=== PATIENT | female | born 1970 | race Caucasian/White ===

== ENCOUNTER 2017-07-27 00:37 | Emergency (ER) | payer OTHER ==
[2017-07-27 00:44] VITALS: TEMP 98.1
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
[2017-07-27] MEDS ORDERED: cloNIDine HCL 0.2 MG TAB PO STA (01:03)
[2017-07-27 01:16] LABS: Basophils # (A) 0.1 k/uL (0-0.2); Basophils % (A) 1 %; CH 30.9; CHCM 33.3; Eosinophils # (A) 0.2 k/uL (0-0.7); Eosinophils % (A) 4 %; HCT 35.9 % (34.0-46.0); HDW 2.48; HGB 12.2 gm/dL (11.4-16.0); Luc # (Auto) 0.17; Luc % (Auto) 3; Lymphocytes # (A) 1.3 k/uL (1.0-4.8); Lymphocytes % (A) 19 %; MCH 31.6 pg (25.0-35.0); MCV 93.1 fL (80.0-100.0); Mean Platelet Volume 7.3; Monocytes # (A) 0.4 k/uL (0-1.0); Monocytes % (A) 6 %; Neutrophils # (A) 4.5 k/uL (1.3-7.7); Neutrophils % (A) 68 %; RBC 3.85 m/uL (3.80-5.40); WBC 6.7 k/uL (3.8-10.6); WBC (Perox) 7.12
[2017-07-27 01:25] LABS: ALT 23 U/L (9-52); AST 18 U/L (14-36); Alkaline Phosphatase 83 U/L (38-126); Anion Gap 8 mmol/L; Blood Urea Nitrogen 18 mg/dL (7-17); Calcium 8.7 mg/dL (8.4-10.2); Carbon Dioxide 27 mmol/L (22-30); Chloride 105 mmol/L (98-107); Glucose 92 mg/dL (74-99); Magnesium 1.7 mg/dL (1.6-2.3); Non-African American GFR(MDRD) 59 (>60 ml/min/1.73 sqM); Potassium 3.6 mmol/L (3.5-5.1); Sodium 140 mmol/L (137-145); Total Bilirubin <0.1 mg/dL (0.2-1.3); Total Protein 6.5 g/dL (6.3-8.2)
[2017-07-27 01:35] LABS: Creatine Kinase 60 U/L (30-135)
[2017-07-27 01:40] LABS: INR 1.1 (<1.2); Partial Thromboplastin Time 25.6 sec (22.0-30.0)
[2017-07-27 01:48] LABS: Creatine Kinase MB 1.3 ng/mL (0.0-2.4); Troponin I <0.012 ng/mL (0.000-0.034)
--- NOTE | 2017-07-27 02:02 | XR ---
EXAM: XR Chest, 2 Views CLINICAL HISTORY: Chest pain TECHNIQUE: Frontal and lateral views of the chest. COMPARISON: Chest x-ray dated 07/29/2016 FINDINGS: Lungs: Unremarkable. No consolidation. Pleural space: Unremarkable. No pneumothorax. Heart: Unremarkable. No cardiomegaly. Mediastinum: Unremarkable. Bones/joints: Unremarkable. IMPRESSION: Normal chest x-rays.
[2017-07-27] MEDS ORDERED: FAMOTIDINE 20 MG/2 ML VIAL IV STA (02:09)
[2017-07-27] MEDS ORDERED: methylPREDNISolone SOD SUCCI 125 MG/2 ML VIAL IV STA (02:09)
[2017-07-27] MEDS ORDERED: diphenhydrAMINE 50 MG/ML 1 ML VIAL IVP STA (02:09)
[2017-07-27] MEDS ORDERED: RX INFO: IV CONTRAST WAS GIVEN 1 EACH MISC MISCELLANE PRN (02:11)
--- NOTE | 2017-07-27 03:28 | CT ---
EXAM: CT Angiography Chest With Intravenous Contrast CLINICAL HISTORY: Low pulmonary embolus TECHNIQUE: Axial computed tomographic angiography images of the chest with intravenous contrast using pulmonary embolism protocol. CTDI is 3.0, 22. 78, 3.1 mGy and DLP is 127.90 mGy-cm. This CT exam was performed using one or more of the following dose reduction techniques: automated exposure control, adjustment of the mA and/or kV according to patient size, and/or use of iterative reconstruction technique. MIP reconstructed images were created and reviewed. COMPARISON: No relevant prior studies available. FINDINGS: Pulmonary arteries: No evidence of pulmonary embolus. Aorta: No acute findings. No thoracic aortic aneurysm. Lungs: Subtle patchy ground glass opacities with mild bronchial wall thickening seen to both lungs which may result in nonspecific inflammatory or infectious process. Pleural space: Unremarkable. No significant effusion. No pneumothorax. Heart: Unremarkable. No cardiomegaly. No significant pericardial effusion. Bones/joints: No acute fracture. No dislocation. Soft tissues: Unremarkable. Lymph nodes: Unremarkable. No enlarged lymph nodes. Gallbladder and bile ducts: Gallbladder is surgically absent. IMPRESSION: 1. No evidence of pulmonary embolus. 2. Subtle patchy ground glass opacities with mild bronchial wall thickening seen in both lungs which may represent a nonspecific inflammatory or infectious process.
[2017-07-27 04:37] VITALS: PULSE 65; RESP 18
[2017-07-27 05:35] VITALS: BP 167/95
== END 2017-07-27 05:34 | disposition home or self-care (01) ==
LOC: EC 00:37
DX: R07.89 Other chest pain (principal); J45.909 Unspecified asthma, uncomplicated; J44.9 Chronic obstructive pulmonary disease, unspecified; I10 Essential (primary) hypertension; F17.200 Nicotine dependence, unspecified, uncomplicated; Z86.73 Personal history of transient ischemic attack (TIA), and cerebral infarction without residual deficits; Z86.14 Personal history of Methicillin resistant Staphylococcus aureus infection; Z85.41 Personal history of malignant neoplasm of cervix uteri; Z85.43 Personal history of malignant neoplasm of ovary; Z90.721 Acquired absence of ovaries, unilateral; Z79.51 Long term (current) use of inhaled steroids; Z79.899 Other long term (current) drug therapy; Z91.041 Radiographic dye allergy status
CPT/HCPCS: 36415; 93005; 85379; 80053; 82550; 82553; 83735; 84484; 85025; 85610; 85730; 71020; 71275; 99285; 96374; 96375 ×2; J1200; J2930; Q9967

== ENCOUNTER 2019-06-24 17:54 | Emergency (ER) | payer OTHER ==
[2019-06-24] MEDS ORDERED: LIDOCAINE 5% PATCH TOPICAL STA (18:38)
[2019-06-24] MEDS ORDERED: ACETAMINOPHEN TAB 325 MG TAB PO STA (18:38)
[2019-06-24] MEDS ORDERED: ATENOLOL 50 MG TAB PO STA (18:42)
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
--- NOTE | 2019-06-24 19:24 | XR ---
EXAMINATION TYPE: XR humerus RT DATE OF EXAM: 06/24/2019 COMPARISON: NONE HISTORY: Pain TECHNIQUE: 2 views FINDINGS: Shoulder joint and elbow joint appear intact. I see no fracture nor dislocation. IMPRESSION: Negative right humerus exam.
--- NOTE | 2019-06-24 19:24 | XR ---
EXAMINATION TYPE: XR clavicle RT DATE OF EXAM: 06/24/2019 COMPARISON: NONE HISTORY: Pain TECHNIQUE: 2 views FINDINGS: I see no fracture nor dislocation. AC joint is intact. IMPRESSION: Negative right clavicle exam.
--- NOTE | 2019-06-24 19:38 | XR ---
EXAMINATION TYPE: XR shoulder complete RT DATE OF EXAM: 06/24/2019 COMPARISON: NONE HISTORY: Shoulder pain TECHNIQUE: 3 views FINDINGS: There is no sign of fracture nor dislocation. Joint spaces are normal. There are no patholo gic calcifications. IMPRESSION: Negative right shoulder exam.
[2019-06-24 20:05] VITALS: BP 188/113; PULSE 71; RESP 18; TEMP 97.9
== END 2019-06-24 20:11 | disposition home or self-care (01) ==
LOC: EC 17:54
DX: S40.011A Contusion of right shoulder, initial encounter (principal); F17.200 Nicotine dependence, unspecified, uncomplicated; Z91.041 Radiographic dye allergy status; Z86.14 Personal history of Methicillin resistant Staphylococcus aureus infection; Z86.73 Personal history of transient ischemic attack (TIA), and cerebral infarction without residual deficits; Z98.890 Other specified postprocedural states; Y09 Assault by unspecified means
CPT/HCPCS: 99283

== ENCOUNTER 2019-09-12 18:30 | Emergency (ER) | payer OTHER ==
[2019-09-12 18:56] VITALS: RESP 18
[2019-09-12] MEDS ORDERED: ATENOLOL 50 MG TAB PO STA (19:10)
[2019-09-12 19:24] LABS: Basophils # (A) 0.2 k/uL (0-0.2); Basophils % (A) 1 %; Eosinophils # (A) 0.1 k/uL (0-0.7); Eosinophils % (A) 1 %; HCT 43.7 % (34.0-46.0); HGB 14.8 gm/dL (11.4-16.0); Lymphocytes # (A) 1.3 k/uL (1.0-4.8); Lymphocytes % (A) 11 %; MCH 31.9 pg (25.0-35.0); MCHC 33.9 g/dL (31.0-37.0); MCV 94.1 fL (80.0-100.0); Mean Platelet Volume 6.2; Monocytes # (A) 0.7 k/uL (0-1.0); Monocytes % (A) 6 %; Neutrophils # (A) 9.9 k/uL (1.3-7.7); Neutrophils % (A) 79 %; Platelet Count 283 k/uL (150-450); RBC 4.64 m/uL (3.80-5.40); RDW 12.9 % (11.5-15.5); WBC 12.5 k/uL (3.8-10.6)
[2019-09-12 19:33] LABS: Albumin 4.7 g/dL (3.5-5.0); Calcium 9.8 mg/dL (8.4-10.2); Potassium 4.3 mmol/L (3.5-5.1); Total Bilirubin 0.4 mg/dL (0.2-1.3); Total Protein 8.7 g/dL (6.3-8.2)
--- NOTE | 2019-09-12 19:40 | XR ---
EXAMINATION TYPE: XR chest 2V DATE OF EXAM: 09/12/2019 COMPARISON: 07/27/2017 HISTORY: High blood pressure TECHNIQUE: Frontal and lateral views of the chest are obtained. FINDINGS: Heart and mediastinum are normal. Lungs are clear. Costophrenic angles are clear. Bony tho rax is intact. IMPRESSION: Normal chest. No change.
[2019-09-12 20:02] LABS: Amorphous Sediment,Urine Rare /hpf; Appearance,Urine Clear (Clear); Bacteria,Urine Rare /hpf; Bilirubin,Urine Negative (Negative); Blood,Urine Negative (Negative); Color,Urine Yellow; Glucose,Urine (UA) Negative (Negative); Ketones,Urine Negative (Negative); Leukocyte Esterase,Urine Moderate (Negative); Mucus,Urine Occasional /hpf; Nitrite,Urine Negative (Negative); PH, Urine 5.5 (5.0-8.0); Protein,Urine Negative (Negative); RBC,Urine 1 /hpf (0-5); Squamous Epithelial Cell,Urine 16 /hpf (0-4); Urobilinogen,Urine <2.0 mg/dL (<2.0)
--- NOTE | 2019-09-12 20:47 | ED ---
General Adult HPI - General Chief complaint: Recheck/Abnormal Lab/Rx Stated complaint: out of blood pressure meds Time Seen by Provider: 09/12/19 18:57 Source: patient, RN notes reviewed, old records reviewed Mode of arrival: ambulatory Limitations: no limitations - History of Present Illness Initial comments: 48-year-old female patient comes to ED for chief complaint of hypertension. Patient reports that she checked her blood pressure at [facility] and it was elevated. Patient reports that she has been out of her blood pressure medication for the last 2 weeks. Patient states that she's had a waxing and waning headache last 2 days. Patient force it is very much improved now. Patient was sent for similar to her migraine headaches in the past. Patient also reports that she has had a waking approximately 30 pounds in the last few months. States that she has redness of her right breast yesterday which she wants to be evaluated. Denies Any chest pain or shortness of breath. Denies any other complaints at this time. Systemic: Pt denies fatigue, fever/chills, rash. Pt denies weakness, night sweats, weight loss. Neuro: Pt denies headache, visual disturbances, syncope or pre-syncope. HEENT: Pt denies ocular discharge or irritation, otalgia, rhinorrhea, pharyngitis or notable lymphadenopathy. Cardiopulmonary: Pt denies chest pain, SOB, heart palpitations, dyspnea on exertion. Abdominal/GI: Pt denies abdominal pain, n/v/d. : Pt denies dysuria, burning w/ urination, frequency/urgency. Denies new onset urinary or bowel incontinence. MSK: Pt denies myalgia, loss of strength or function in extremities. Neuro: Pt denies new onset weakness, paresthesias. - Related Data Previous Rx's Medication Instructions Recorded Acetaminophen [Acetaminophen ER] 650 mg PO Q8HR PRN #30 tablet.er 06/24/19 Atenolol [Tenormin] 50 mg PO BID #60 tab 06/24/19 Atenolol [Tenormin] 50 mg PO Q12HR 30 Days #60 tab 09/12/19 Allergies Allergy/AdvReac Type Severity Reaction Status Date / Time Iodinated Contrast Media Allergy Dyspnea/PASSED Verified 09/12/19 19:28 [Iodinated Contrast Media - OUT/NAUSEA IV Dye] Review of Systems ROS Statement: Those systems with pertinent positive or pertinent negative responses have been documented in the HPI. ROS Other: All systems not noted in ROS Statement are negative. Past Medical History Past Medical History: Asthma, Cancer, COPD, CVA/TIA, Hypertension, Pneumonia Additional Past Medical History / Comment(s): CERVICAL AND OVARIAN CA, TIA,"PT STATED A DR TOLD HER SHE IN EARLY STAGES OF MS AND IS SCHEDULED FOR A SPINAL TAP IN SEP 2016"," DISC PROBLEN IN NECK" History of Any Multi-Drug Resistant Organisms: MRSA Date of last positivie culture/infection: 2009 MDRO Source:: FACE Past Surgical History: Orthopedic Surgery, Tonsillectomy, Uterine Ablation Additional Past Surgical History / Comment(s): d&c, oophorectomy, right shoulder surgery Past Anesthesia/Blood Transfusion Reactions: No Reported Reaction Additional Past Anesthesia/Blood Transfusion Reaction / Comment(s): clausterphob ia Past Psychological History: Anxiety, Bipolar, Depression Smoking Status: Current every day smoker Past Alcohol Use History: None Reported Past Drug Use History: None Reported - Past Family History Father Family Medical History: Congestive Heart Failure (CHF), Deep Vein Thrombosis (DVT) Mother Family Medical History: Congestive Heart Failure (CHF) General Exam - General Exam Comments Initial Comments: Constitutional: NAD, AOX3, Pt has pleasant affect. HEENT: NC/AT, trachea midline, neck supple, no lymphadenopathy. Posterior p harynx non erythematous, without exudates. External ears appear normal, without discharge. Mucous membranes moist. Eyes PERRLA, EOM intact. There is no scleral icterus. No pallor noted. Cardiopulmonary: RRR, no murmurs, rubs or gallops, no JVD noted. Lungs CTAB in anterior and posterior landry. No peripheral edema. Abdominal exam: Abdomen soft and non-distended. Abdomen non-tender to palpation in all 4 quadrants. Bowel sounds active in LLQ. No hepatosplenomegaly. No ecchymosis Neuro: CN II-XII intact. No nuchal rigidity. No raccon eyes, no abrams sign, no hemotympanum. No cervical spinal tenderness. MSK: No posterior calf tenderness bilaterally, homans sign negative bilaterally. Posterior tibialis and radial pulse +2 bilaterally. Sensation intact in upper and lower extremities. Full active ROM in upper and lower extremities, 5/5 stregnth. Breast: External breast exam did not display any skin changes, chaperogned by JENNIFFER Jose. Limitations: no limitations Course Vital Signs 09/12/19 09/12/19 09/12/19 18:52 20:15 21:14 Temperature 97.8 F 98 F Pulse Rate 120 H 70 74 Respiratory 18 18 18 Rate Blood Pressure 165/117 160/107 166/105 O2 Sat by Pulse 98 97 96 Oximetry Medical Decision Making - Medical Decision Making 48-year-old female patient comes to ED for chief complaint of hypertension. Patient reports that she checked her blood pressure at [facility] and it was elevated. Patient reports that she has been out of her blood pressure medication for the last 2 weeks. Patient states that she's had a waxing and waning headache last 2 days. Patient force it is very much improved now. Patient was sent for similar to her migraine headaches in the past. Patient also reports that she has had a waking approximately 30 pounds in the last few months. States that she has redness of her right breast yesterday which she wants to be evaluated. Denies Any chest pain or shortness of breath. Denies any other complaints at this time. Patient vital signs displayed hypertension, second set of vital signs are stable. Physical exam did not display acute pathology. Laboratory investigations revealed mild leukocytosis of 12.5. CMP overall noncompressive. Kidney function only decreased from 2 years ago. Troponin negative. BNP negative. UA contaminated, be cultured. EKG nonischemic. Chest x-ray negati ve. Patient will pressure medications refilled. Will discharge with close outpatient follow-up. Case discussed with Dr. Viveros. - Lab Data Result diagrams: 09/12/19 19:15 09/12/19 19:15 Lab Results 09/12/19 09/12/19 09/12/19 Range/Units 19:15 19:15 19:15 WBC 12.5 H (3.8-10.6) k/uL RBC 4.64 (3.80-5.40) m/uL Hgb 14.8 (11.4-16.0) gm/dL Hct 43.7 (34.0-46.0) % MCV 94.1 (80.0-100.0) fL MCH 31.9 (25.0-35.0) pg MCHC 33.9 (31.0-37.0) g/dL RDW 12.9 (11.5-15.5) % Plt Count 283 (150-450) k/uL Neutrophils % 79 % Lymphocytes % 11 % Monocytes % 6 % Eosinophils % 1 % Basophils % 1 % Neutrophils # 9.9 H (1.3-7.7) k/uL Lymphocytes # 1.3 (1.0-4.8) k/uL Monocytes # 0.7 (0-1.0) k/uL Eosinophils # 0.1 (0-0.7) k/uL Basophils # 0.2 (0-0.2) k/uL Sodium 141 (137-145) mmol/L Potassium 4.3 (3.5-5.1) mmol/L Chloride 108 H (98-107) mmol/L Carbon Dioxide 22 (22-30) mmol/L Anion Gap 11 mmol/L BUN 17 (7-17) mg/dL Creatinine 1.11 H (0.52-1.04) mg/dL Est GFR (CKD-EPI)AfAm 67 (>60 ml/min/1.73 sqM) Est GFR (CKD-EPI)NonAf 58 (>60 ml/min/1.73 sqM) Glucose 108 H (74-99) mg/dL Calcium 9.8 (8.4-10.2) mg/dL Total Bilirubin 0.4 (0.2-1.3) mg/dL AST 37 H (14-36) U/L ALT 35 (9-52) U/L Alkaline Phosphatase 92 (38-126) U/L Troponin I (0.000-0.034) ng/mL NT-Pro-B Natriuret Pep 100 pg/mL Total Protein 8.7 H (6.3-8.2) g/dL Albumin 4.7 (3.5-5.0) g/dL Urine Color Urine Appearance (Clear) Urine pH (5.0-8.0) Ur Specific Meade (1.001-1.035) Urine Protein (Negative) Urine Glucose (UA) (Negative) Urine Ketones (Negative) Urine Blood (Negative) Urine Nitrite (Negative) Urine Bilirubin (Negative) Urine Urobilinogen (<2.0) mg/dL Ur Leukocyte Esterase (Negative) Urine RBC (0-5) /hpf Urine WBC (0-5) /hpf Ur Squamous Epith Cells (0-4) /hpf Amorphous Sediment (None) /hpf Urine Bacteria (None) /hpf Urine Mucus (None) /hpf 09/12/19 09/12/19 Range/Units 19:15 19:35 WBC (3.8-10.6) k/uL RBC (3.80-5.40) m/uL Hgb (11.4-16.0) gm/dL Hct (34.0-46.0) % MCV (80.0-100.0) fL MCH (25.0-35.0) pg MCHC (31.0-37.0) g/dL RDW (11.5-15.5) % Plt Count (150-450) k/uL Neutrophils % % Lymphocytes % % Monocytes % % Eosinophils % % Basophils % % Neutrophils # (1.3-7.7) k/uL Lymphocytes # (1.0-4.8) k/uL Monocytes # (0-1.0) k/uL Eosinophils # (0-0.7) k/uL Basophils # (0-0.2) k/uL Sodium (137-145) mmol/L Potassium (3.5-5.1) mmol/L Chloride (98-107) mmol/L Carbon Dioxide (22-30) mmol/L Anion Gap mmol/L BUN (7-17) mg/dL Creatinine (0.52-1.04) mg/dL Est GFR (CKD-EPI)AfAm (>60 ml/min/1.73 sqM) Est GFR (CKD-EPI)NonAf (>60 ml/min/1.73 sqM) Glucose (74-99) mg/dL Calcium (8.4-10.2) mg/dL Total Bilirubin (0.2-1.3) mg/dL AST (14-36) U/L ALT (9-52) U/L Alkaline Phosphatase (38-126) U/L Troponin I <0.012 (0.000-0.034) ng/mL NT-Pro-B Natriuret Pep pg/mL Total Protein (6.3-8.2) g/dL Albumin (3.5-5.0) g/dL Urine Color Yellow Urine Appearance Clear (Clear) Urine pH 5.5 (5.0-8.0) Ur Specific Meade 1.010 (1.001-1.035) Urine Protein Negative (Negative) Urine Glucose (UA) Negative (Negative) Urine Ketones Negative (Negative) Urine Blood Negative (Negative) Urine Nitrite Negative (Negative) Urine Bilirubin Negative (Negative) Urine Urobilinogen <2.0 (<2.0) mg/dL Ur Leukocyte Esterase Moderate H (Negative) Urine RBC 1 (0-5) /hpf Urine WBC 6 H (0-5) /hpf Ur Squamous Epith Cells 16 H (0-4) /hpf Amorphous Sediment Rare H (None) /hpf Urine Bacteria Rare H (None) /hpf Urine Mucus Occasional H (None) /hpf - EKG Data -: EKG Interpreted by Me (and Dr. Viveros) EKG Comments: 3081, P and 4022, QRS 90, QT/QTC 392/455. Sinus Rhythm with first-degree AV block. No concern for acute ischemia. Disposition Clinical Impression: Hypertension Disposition: HOME SELF-CARE Condition: Stable Instructions (If sedation given, give patient instructions): Hypertension (ED) Additional Instructions: Patient to adhere to previously discussed treatment plan and will take medication(s) as directed. Patient to follow up with PCP in 1-2 days. Patient to return to ED if symptoms do not improve. Take Medication as directed. Follow up with primary care provider tomorrow. Return to ED if condition worsens. Prescriptions: Atenolol [Tenormin] 50 mg PO Q12HR 30 Days #60 tab Is patient prescribed a controlled substance at d/c from ED?: No Referrals: None,Stated [Primary Care Provider] - 1-2 days
[2019-09-12 21:16] VITALS: BP 166/105; PULSE 74; TEMP 98
== END 2019-09-12 21:14 | disposition home or self-care (01) ==
LOC: EC 18:30
DX: I10 Essential (primary) hypertension (principal); D72.829 Elevated white blood cell count, unspecified; F17.200 Nicotine dependence, unspecified, uncomplicated; Z91.041 Radiographic dye allergy status; Z86.73 Personal history of transient ischemic attack (TIA), and cerebral infarction without residual deficits; Z85.43 Personal history of malignant neoplasm of ovary; Z85.41 Personal history of malignant neoplasm of cervix uteri
CPT/HCPCS: 36415; 71046; 80053; 81001; 83880; 84484; 85025; 93005; 99284

== ENCOUNTER 2019-12-21 21:23 | Emergency (ER) | payer OTHER ==
[2019-12-21] MEDS ORDERED: IPRATROPIUM-ALBUTEROL 3 ML NEB INHALATION STA (22:27)
[2019-12-21] MEDS ORDERED: ATENOLOL 50 MG TAB PO STA (22:27)
[2019-12-21 23:14] LABS: Basophils # (A) 0.2 k/uL (0-0.2); Basophils % (A) 2 %; Eosinophils # (A) 0.2 k/uL (0-0.7); Eosinophils % (A) 2 %; HCT 45.6 % (34.0-46.0); Lymphocytes # (A) 1.8 k/uL (1.0-4.8); Lymphocytes % (A) 16 %; MCH 31.1 pg (25.0-35.0); MCHC 32.9 g/dL (31.0-37.0); MCV 94.6 fL (80.0-100.0); Mean Platelet Volume 7.6; Monocytes # (A) 0.5 k/uL (0-1.0); Monocytes % (A) 5 %; Neutrophils % (A) 74 %; Platelet Count 294 k/uL (150-450); RBC 4.82 m/uL (3.80-5.40); WBC 10.8 k/uL (3.8-10.6)
[2019-12-21 23:26] LABS: Albumin 4.3 g/dL (3.5-5.0); Calcium 9.4 mg/dL (8.4-10.2); Magnesium 2.1 mg/dL (1.6-2.3); Potassium 3.6 mmol/L (3.5-5.1); Total Bilirubin 0.4 mg/dL (0.2-1.3); Total Protein 8.1 g/dL (6.3-8.2)
--- NOTE | 2019-12-21 23:34 | XR ---
EXAMINATION TYPE: XR chest 2V DATE OF EXAM: 12/21/2019 COMPARISON: 09/12/2019 HISTORY: Pneumonia TECHNIQUE: 2 views FINDINGS: Heart and mediastinum are normal. Lungs are clear. Diaphragm is normal. Bony thorax is inta ct. IMPRESSION: Normal chest. No change.
[2019-12-21 23:42] LABS: Partial Thromboplastin Time 25.7 sec (22.0-30.0); Prothrombin Time 10.5 sec (9.0-12.0)
--- NOTE | 2019-12-22 00:04 | ED ---
SOB HPI - General Chief Complaint: Shortness of Breath Stated Complaint: pnuemonia Time Seen by Provider: 12/21/19 21:55 Source: patient Mode of arrival: ambulatory - History of Present Illness Initial Comments: Cathi is a 49-year-old female with a history of COPD, hypertension who presents the ER today for evaluation of shortness of breath. Patient reports that she does not have a primary care physician and has not been able to follow-up due to previous insurance issues. Patient states that she is currently out of her inhalers and her antihypertensives. Patient reports that she's had a nonproductive cough and wheezing her over a week she states that every morning she wakes up she has coughing which causes left-sided chest pain that resolves after coughing. She denies any exertional chest pain palpitations diaphoresis. Patient reports that this evening she felt like she was wheezing which prompted her to come to the ER for reevaluation. Patient states that due to insurance she has been unable to establish care with primary care physician. She previously had care with Dr. Neville but was released from the practice due to failure to pay outstanding bills, because of that she can follow up with anybody and physician healthcare network. [facility] not [facility] because she does have some insurance. She does not have any motor transportation therefore cannot see care outside the city. - Related Data Previous Rx's Medication Instructions Recorded Acetaminophen [Acetaminophen ER] 650 mg PO Q8HR PRN #30 tablet.er 06/24/19 Atenolol [Tenormin] 50 mg PO BID #60 tab 06/24/19 Atenolol [Tenormin] 50 mg PO Q12HR 30 Days #60 tab 09/12/19 Albuterol Inhaler [Ventolin Hfa 1 - 2 puff INHALATION RT-Q6H PRN 12/22/19 Inhaler] #1 inhaler Atenolol [Tenormin] 50 mg PO BID #60 tab 12/22/19 Allergies Allergy/AdvReac Type Severity Reaction Status Date / Time Iodinated Contrast Media Allergy Dyspnea/PASSED Verified 12/21/19 21:42 [Iodinated Contrast Media - OUT/NAUSEA IV Dye] Review of Systems ROS Statement: Those systems with pertinent positive or pertinent negative responses have been documented in the HPI. ROS Other: All systems not noted in ROS Statement are negative. Past Medical History Past Medical History: Asthma, Cancer, COPD, CVA/TIA, Hypertension, Pneumonia Additional Past Medical History / Comment(s): CERVICAL AND OVARIAN CA, TIA,"PT STATED A DR TOLD HER SHE IN EARLY STAGES OF MS AND IS SCHEDULED FOR A SPINAL TAP IN SEP 2016"," DISC PROBLEN IN NECK" History of Any Multi-Drug Resistant Organisms: MRSA Date of last positivie culture/infection: 2009 MDRO Source:: FACE Past Surgical History: Orthopedic Surgery, Tonsillectomy, Uterine Ablation Additional Past Surgical History / Comment(s): d&c, oophorectomy, right shoulder surgery Past Anesthesia/Blood Transfusion Reactions: No Reported Reaction Additional Past Anesthesia/Blood Transfusion Reaction / Comment(s): clausterphobia Past Psychological History: Anxiety, Bipolar, Depression Smoking Status: Current every day smoker Past Alcohol Use History: None Reported Past Drug Use History: None Reported - Past Family History Father Family Medical History: Congestive Heart Failure (CHF), Deep Vein Thrombosis (DVT) Mother Family Medical History: Congestive Heart Failure (CHF) General Exam - General Exam Comments Initial Comments: Physical Exam GENERAL: Patient is well-developed and well-nourished. Patient is nontoxic and well- hydrated and is in no distress. HENT: Normocephalic, Atraumatic. EYES: PERRL, EOMI PULMONARY: Mild expiratory wheezing in all lung landry CARDIOVASCULAR: There is a regular rate and rhythm without any murmurs gallops or rubs. ABDOMEN: Soft and nontender with normal bowel sounds. SKIN: Skin is clear with no lesions or rashes and otherwise unremarkable. : Deferred NEUROLOGIC: Patient is alert and oriented x3. Moving all extremities spontaneously MUSCULOSKELETAL: Normal extremities with adequate strength and full range of motion. No lower extremity swelling or edema. No calf tenderness. PSYCHIATRIC: Normal psychiatric evaluation. Course Vital Signs 12/21/19 12/21/19 12/21/19 21:38 22:00 22:50 Temperature 98.4 F Pulse Rate 85 68 88 Respiratory 20 19 18 Rate Blood Pressure 213/124 194/138 O2 Sat by Pulse 96 96 Oximetry 12/21/19 12/21/19 12/21/19 22:57 23:00 23:30 Temperature Pulse Rate 90 80 63 Respiratory 18 20 19 Rate Blood Pressure 188/127 193/108 O2 Sat by Pulse 96 96 Oximetry 02/07/0312/22/19 12/22/19 00:00 00:15 00:30 Temperature Pulse Rate 56 L 56 L 57 L Respiratory 18 19 20 Rate Blood Pressure 174/116 173/103 189/107 O2 Sat by Pulse 95 96 95 Oximetry 12/22/19 12/22/19 12/22/19 00:43 00:44 01:00 Temperature 98.1 F Pulse Rate 61 60 54 L Respiratory 19 18 18 Rate Blood Pressure 180/110 183/100 169/105 O2 Sat by Pulse 96 96 96 Oximetry 12/22/19 12/22/19 01:22 01:36 Temperature 98 F Pulse Rate 64 60 Respiratory 18 18 Rate Blood Pressure 168/108 170/99 O2 Sat by Pulse 96 96 Oximetry Medical Decision Making - Medical Decision Making The patient was seen and evaluated history was obtained from patient's 49-year-old female smoker, currently out of medications due to lack of follow-up Labs and breathing treatement ordered Labs unremarkable Patient persistently hypertensive - additional medications ordered and patient's BP improved She was prescribed her normal atenolol and a rescue inhaler and encouraged to follow up with a primary care physician. - Lab Data Result diagrams: 12/21/19 22:56 12/21/19 22:56 Lab Results 12/21/19 12/21/19 12/21/19 Range/Units 22:56 22:56 22:56 WBC 10.8 H (3.8-10.6) k/uL RBC 4.82 (3.80-5.40) m/uL Hgb 15.0 (11.4-16.0) gm/dL Hct 45.6 (34.0-46.0) % MCV 94.6 (80.0-100.0) fL MCH 31.1 (25.0-35.0) pg MCHC 32.9 (31.0-37.0) g/dL RDW 13.0 (11.5-15.5) % Plt Count 294 (150-450) k/uL Neutrophils % 74 % Lymphocytes % 16 % Monocytes % 5 % Eosinophils % 2 % Basophils % 2 % Neutrophils # 8.0 H (1.3-7.7) k/uL Lymphocytes # 1.8 (1.0-4.8) k/uL Monocytes # 0.5 (0-1.0) k/uL Eosinophils # 0.2 (0-0.7) k/uL Basophils # 0.2 (0-0.2) k/uL PT 10.5 (9.0-12.0) sec INR 1.0 (<1.2) APTT 25.7 (22.0-30.0) sec Sodium 137 (137-145) mmol/L Potassium 3.6 (3.5-5.1) mmol/L Chloride 105 (98-107) mmol/L Carbon Dioxide 27 (22-30) mmol/L Anion Gap 5 mmol/L BUN 15 (7-17) mg/dL Creatinine 0.99 (0.52-1.04) mg/dL Est GFR (CKD-EPI)AfAm 77 (>60 ml/min/1.73 sqM) Est GFR (CKD-EPI)NonAf 66 (>60 ml/min/1.73 sqM) Glucose 92 (74-99) mg/dL Calcium 9.4 (8.4-10.2) mg/dL Magnesium 2.1 (1.6-2.3) mg/dL Total Bilirubin 0.4 (0.2-1.3) mg/dL AST 28 (14-36) U/L ALT 14 (4-34) U/L Alkaline Phosphatase 117 (38-126) U/L Troponin I (0.000-0.034) ng/mL Total Protein 8.1 (6.3-8.2) g/dL Albumin 4.3 (3.5-5.0) g/dL 12/21/19 Range/Units 22:56 WBC (3.8-10.6) k/uL RBC (3.80-5.40) m/uL Hgb (11.4-16.0) gm/dL Hct (34.0-46.0) % MCV (80.0-100.0) fL MCH (25.0-35.0) pg MCHC (31.0-37.0) g/dL RDW (11.5-15.5) % Plt Count (150-450) k/uL Neutrophils % % Lymphocytes % % Monocytes % % Eosinophils % % Basophils % % Neutrophils # (1.3-7.7) k/uL Lymphocytes # (1.0-4.8) k/uL Monocytes # (0-1.0) k/uL Eosinophils # (0-0.7) k/uL Basophils # (0-0.2) k/uL PT (9.0-12.0) sec INR (<1.2) APTT (22.0-30.0) sec Sodium (137-145) mmol/L Potassium (3.5-5.1) mmol/L Chloride (98-107) mmol/L Carbon Dioxide (22-30) mmol/L Anion Gap mmol/L BUN (7-17) mg/dL Creatinine (0.52-1.04) mg/dL Est GFR (CKD-EPI)AfAm (>60 ml/min/1.73 sqM) Est GFR (CKD-EPI)NonAf (>60 ml/min/1.73 sqM) Glucose (74-99) mg/dL Calcium (8.4-10.2) mg/dL Magnesium (1.6-2.3) mg/dL Total Bilirubin (0.2-1.3) mg/dL AST (14-36) U/L ALT (4-34) U/L Alkaline Phosphatase (38-126) U/L Troponin I <0.012 (0.000-0.034) ng/mL Total Protein (6.3-8.2) g/dL Albumin (3.5-5.0) g/dL Disposition Clinical Impression: COPD exacerbation, Tobacco abuse, Hypertension Disposition: HOME SELF-CARE Condition: Stable Instructions (If sedation given, give patient instructions): Asthma (ED) Prescriptions: Atenolol [Tenormin] 50 mg PO BID #60 tab Albuterol Inhaler [Ventolin Hfa Inhaler] 1 - 2 puff INHALATION RT-Q6H PRN #1 inhaler PRN Reason: Wheezing Is patient prescribed a controlled substance at d/c from ED?: No Referrals: None,Stated [Primary Care Provider] - 1-2 days
[2019-12-22] MEDS ORDERED: ENALAPRILAT 1.25 MG/ML 1 ML VIAL IVP STA (00:11)
[2019-12-22 00:45] VITALS: RESP 18
[2019-12-22 01:23] VITALS: TEMP 98
[2019-12-22 01:38] VITALS: BP 170/99; PULSE 60
== END 2019-12-22 01:37 | disposition home or self-care (01) ==
LOC: EC 21:23
DX: J44.1 Chronic obstructive pulmonary disease with (acute) exacerbation (principal); I10 Essential (primary) hypertension; F17.200 Nicotine dependence, unspecified, uncomplicated; Z91.048 Other nonmedicinal substance allergy status; Z86.73 Personal history of transient ischemic attack (TIA), and cerebral infarction without residual deficits; Z85.43 Personal history of malignant neoplasm of ovary
CPT/HCPCS: 36415; 71046; 80053; 83735; 84484; 85025; 85610; 85730; 94640; 96374; 99285

== ENCOUNTER 2020-01-19 22:14 | Emergency (ER) | payer OTHER ==
[2020-01-19 22:19] LABS: Glucose,Whole Blood 126 mg/dL (75-99)
[2020-01-19] MEDS ORDERED: SODIUM CHLORIDE 0.9% 500 ML 500 ML IV STA (22:20)
[2020-01-19] MEDS ORDERED: LABETALOL 5 MG/ML VIAL MDV IVP STA ×3 (22:27→23:47)
--- NOTE | 2020-01-19 22:44 | ED ---
General Adult HPI - General Chief complaint: Cardiac Arrest/CPR Stated complaint: Unresponsive Time Seen by Provider: 01/19/20 22:20 Source: patient, RN notes reviewed, old records reviewed Mode of arrival: EMS Limitations: altered mental status, physical limitation - History of Present Illness Initial comments: 49-year-old female presenting acutely unresponsive, agonal respirations upon arrival. History from EMS indicates that the patient had an acute change in her mental status, stated she did not feel well and collapsed at home. There was no associated trauma. Pupils were pinpoint, IV Narcan was a director corporate compliance by EMS was transported as a priority one on a nonrebreather. She had agonal respirations and extensor posturing. Initially there is no family for further history. Medical history unknown. Patient intubated upon arrival. - Related Data Previous Rx's Medication Instructions Recorded Acetaminophen [Acetaminophen ER] 650 mg PO Q8HR PRN #30 tablet.er 06/24/19 Atenolol [Tenormin] 50 mg PO BID #60 tab 06/24/19 Atenolol [Tenormin] 50 mg PO Q12HR 30 Days #60 tab 09/12/19 Albuterol Inhaler [Ventolin Hfa 1 - 2 puff INHALATION RT-Q6H PRN 12/22/19 Inhaler] #1 inhaler Atenolol [Tenormin] 50 mg PO BID #60 tab 12/22/19 Allergies Allergy/AdvReac Type Severity Reaction Status Date / Time Iodinated Contrast Media Allergy Dyspnea/PASSED Verified 12/21/19 21:42 [Iodinated Contrast Media - OUT/NAUSEA IV Dye] Review of Systems ROS Statement: Those systems with pertinent positive or pertinent negative responses have been documented in the HPI. ROS Other: All systems not noted in ROS Statement are negative. Past Medical History Past Medical History: Asthma, Cancer, COPD, CVA/TIA, Hypertension, Pneumonia Additional Past Medical History / Comment(s): CERVICAL AND OVARIAN CA, TIA,"PT STATED A DR TOLD HER SHE IN EARLY STAGES OF MS AND IS SCHEDULED FOR A SPINAL TAP IN SEP 2016"," DISC PROBLEN IN NECK" History of Any Multi-Drug Resistant Organisms: MRSA Date of last positivie culture/infection: 2009 MDRO Source:: FACE Past Surgical History: Orthopedic Surgery, Tonsillectomy, Uterine Ablation Additional Past Surgical History / Comment(s): d&c, oophorectomy, right shoulder surgery Past Anesthesia/Blood Transfusion Reactions: No Reported Reaction Additional Past Anesthesia/Blood Transfusion Reaction / Comment(s): clauster phobia Past Psychological History: Anxiety, Bipolar, Depression Smoking Status: Current every day smoker Past Alcohol Use History: None Reported Past Drug Use History: None Reported - Past Family History Father Family Medical History: Congestive Heart Failure (CHF), Deep Vein Thrombosis (DVT) Mother Family Medical History: Congestive Heart Failure (CHF) General Exam Limitations: no limitations General appearance: obtunded, in distress Head exam: Present: atraumatic, normocephalic Eye exam: Present: PERRL (Pupils are 2 mm bilaterally minimally reactive. No gaze deviation.). Absent: nystagmus Neck exam: Present: normal inspection. Absent: tenderness, meningismus Respiratory exam: Present: respiratory distress (Agonal respirations), other. Absent: wheezes Cardiovascular Exam: Present: normal rhythm, tachycardia GI/Abdominal exam: Present: soft. Absent: distended, tenderness, guarding Neurological exam: Present: other (Extensor posturing, no meaningful movements, does not withdraw to pain) Skin exam: Present: warm, dry, intact. Absent: cyanosis, diaphoretic Course Vital Signs 01/19/20 01/19/20 01/19/20 22:17 22:35 22:45 Pulse Rate 126 H 111 H 112 H Respiratory 16 12 16 Rate Blood Pressure 270/120 219/134 275/135 O2 Sat by Pulse 100 100 100 Oximetry 01/19/20 01/19/20 23:00 23:48 Pulse Rate 112 H 134 H Respiratory 26 H 12 Rate Blood Pressure 270/148 180/115 O2 Sat by Pulse 100 98 Oximetry - Reevaluation(s) Reevaluation #1: 01/19/[address] Campos, CT reviewed by myself showing intracranial hemorrhage, subarachnoid hemorrhage with extension into the ventricles. Recommends blood pressure control, mannitol, seizure prophylaxis. All this has been ordered. Neurosurgery at [facility] has been paged. Dr. Campos recommending CT angiography, this will be obtained. 01/19/20 23:21 01/19/20 23:39 Reevaluation #2: 01/19/20 23:22 Further history obtained from the patient's family at bedside, she is on atenolol and is noncompliant with his medications, no anticoagulation. Reevaluation #3: 01/19/20 23:39 Discussed the case with ER physician at [facility] Dr. Rizo, will accept admission. Reevaluation #4: 01/19/20 23:50 I did discuss case with neurosurgery at [facility], Dr. Wade, will accept transfer. EKG Findings - EKG Comments: EKG Findings:: EKG: Obtained at 221, sinus tachycardia, biatrial enlargement, T waves and T-wave inversion in the inferior leads no ST segment elevation. Rate of 140, MO interval 146, QRS duration 80, QTC 418. Repeat EKG at 2019: Sinus tachycardia with first-degree AV block, rate of 112, MO interval 222, QRS duration 88, QTC 48, no ST segment elevation, T-wave inversion, biphasic T waves in V6 and V5. EKG at 2020, sinus tachycardia with first-degree AV block vent ricular rate of 112, MO interval 222, QRS duration 88, QTC 404, T-wave inversion in V6 and V5, no ST segment elevation. Procedures - Intubation Sedative: Versed Mg Given: 5 Paralytic: Rocuronium Mg Given: 50 Laryngoscope: Stacy Size: 3 ET Tube Size: 7.5 ET Tube Uncuffed: No Tube Secured Depth (cm): 22 Tube Secured Location: lips Tube Placement Confirmation: visualized tube passing through cords, equal breath sounds bilaterally, no breath sounds over epigastrium, confirmation by capnometry Patient Tolerated Procedure: well Intubation Complications: none Medical Decision Making - Medical Decision Making 49-year-old female presenting in extremis, agonal respirations and extensor posturing, concern for intracranial hemorrhage. Patient is intubated taken immediately to CT CT is his consistent with subarachnoid hemorrhage with intraventricular extension. I immediately discussed case with the stroke neurologist Dr. Campos regarding further management, agrees with guarding, seizure prophylaxis, mannitol. Grandma blood pressure will be 160 systolic. Patient is not on anticoagulation will not require reversal. I did page the neurosurgeon at [facility] prior to transfer and discussed case with the ER physician at [facility]. Laboratory testing, normal CBC, normal CMP, urine drug screen is positive for cocaine. Diagnosis: Subarachnoid hemorrhage with intraventricular extension, vent dependent respiratory failure. - Lab Data Result diagrams: 01/19/20 22:35 01/19/20 22:35 Lab Results 01/19/20 01/19/20 01/19/20 Range/Units 22:17 22:35 22:35 WBC 7.9 (3.8-10.6) k/uL RBC 4.64 (3.80-5.40) m/uL Hgb 14.1 (11.4-16.0) gm/dL Hct 44.4 (34.0-46.0) % MCV 95.5 (80.0-100.0) fL MCH 30.4 (25.0-35.0) pg MCHC 31.8 (31.0-37.0) g/dL RDW 12.8 (11.5-15.5) % Plt Count 196 (150-450) k/uL Neutrophils % 83 % Lymphocytes % 10 % Monocytes % 4 % Eosinophils % 1 % Basophils % 1 % Neutrophils # 6.5 (1.3-7.7) k/uL Lymphocytes # 0.8 L (1.0-4.8) k/uL Monocytes # 0.3 (0-1.0) k/uL Eosinophils # 0.1 (0-0.7) k/uL Basophils # 0.1 (0-0.2) k/uL PT 10.4 (9.0-12.0) sec INR 1.0 (<1.2) APTT 23.0 (22.0-30.0) sec VBG pH (7.31-7.41) VBG pCO2 (37-51) mmHg VBG HCO3 (24-28) mmol/L Sodium (137-145) mmol/L Potassium (3.5-5.1) mmol/L Chloride (98-107) mmol/L Carbon Dioxide (22-30) mmol/L Anion Gap mmol/L BUN (7-17) mg/dL Creatinine (0.52-1.04) mg/dL Est GFR (CKD-EPI)AfAm (>60 ml/min/1.73 sqM) Est GFR (CKD-EPI)NonAf (>60 ml/min/1.73 sqM) Glucose (74-99) mg/dL POC Glucose (mg/dL) 126 H (75-99) mg/dL POC Glu Manufacturing Mechanic ID Thelma Overton Plasma Lactic Acid Chris (0.7-2.0) mmol/L Calcium (8.4-10.2) mg/dL Magnesium (1.6-2.3) mg/dL Total Bilirubin (0.2-1.3) mg/dL AST (14-36) U/L ALT (4-34) U/L Alkaline Phosphatase (38-126) U/L Troponin I (0.000-0.034) ng/mL Total Protein (6.3-8.2) g/dL Albumin (3.5-5.0) g/dL Urine Color Urine Appearance (Clear) Urine pH (5.0-8.0) Ur Specific [place] (1.001-1.035) Urine Protein (Negative) Urine Glucose (UA) (Negative) Urine Ketones (Negative) Urine Blood (Negative) Urine Nitrite (Negative) Urine Bilirubin (Negative) Urine Urobilinogen (<2.0) mg/dL Ur Leukocyte Esterase (Negative) Salicylates mg/dL Urine Opiates Screen (NotDetected) Ur Oxycodone Screen (NotDetected) Urine Methadone Screen (NotDetected) Ur Propoxyphene Screen (NotDetected) Acetaminophen ug/mL Ur Barbiturates Screen (NotDetected) U Tricyclic Antidepress (NotDetected) Ur Phencyclidine Scrn (NotDetected) Ur Amphetamines Screen (NotDetected) U Methamphetamines Scrn (NotDetected) U Benzodiazepines Scrn (NotDetected) Urine Cocaine Screen (NotDetected) U Marijuana (THC) Screen (NotDetected) Serum Alcohol mg/dL 01/19/20 01/19/20 01/19/20 Range/Units 22:35 22:35 22:35 WBC (3.8-10.6) k/uL RBC (3.80-5.40) m/uL Hgb (11.4-16.0) gm/dL Hct (34.0-46.0) % MCV (80.0-100.0) fL MCH (25.0-35.0) pg MCHC (31.0-37.0) g/dL RDW (11.5-15.5) % Plt Count (150-450) k/uL Neutrophils % % Lymphocytes % % Monocytes % % Eosinophils % % Basophils % % Neutrophils # (1.3-7.7) k/uL Lymphocytes # (1.0-4.8) k/uL Monocytes # (0-1.0) k/uL Eosinophils # (0-0.7) k/uL Basophils # (0-0.2) k/uL PT (9.0-12.0) sec INR (<1.2) APTT (22.0-30.0) sec VBG pH (7.31-7.41) VBG pCO2 (37-51) mmHg VBG HCO3 (24-28) mmol/L Sodium 142 (137-145) mmol/L Potassium 4.0 (3.5-5.1) mmol/L Chloride 109 H (98-107) mmol/L Carbon Dioxide 23 (22-30) mmol/L Anion Gap 10 mmol/L BUN 13 (7-17) mg/dL Creatinine 1.05 H (0.52-1.04) mg/dL Est GFR (CKD-EPI)AfAm 71 (>60 ml/min/1.73 sqM) Est GFR (CKD-EPI)NonAf 62 (>60 ml/min/1.73 sqM) Glucose 152 H (74-99) mg/dL POC Glucose (mg/dL) (75-99) mg/dL POC Glu Manufacturing Mechanic ID Plasma Lactic Acid Chris 1.6 (0.7-2.0) mmol/L Calcium 8.8 (8.4-10.2) mg/dL Magnesium 1.7 (1.6-2.3) mg/dL Total Bilirubin 0.2 (0.2-1.3) mg/dL AST 25 (14-36) U/L ALT 15 (4-34) U/L Alkaline Phosphatase 102 (38-126) U/L Troponin I <0.012 (0.000-0.034) ng/mL Total Protein 7.9 (6.3-8.2) g/dL Albumin 4.5 (3.5-5.0) g/dL Urine Color Urine Appearance (Clear) Urine pH (5.0-8.0) Ur Specific [place] (1.001-1.035) Urine Protein (Negative) Urine Glucose (UA) (Negative) Urine Ketones (Negative) Urine Blood (Negative) Urine Nitrite (Negative) Urine Bilirubin (Negative) Urine Urobilinogen (<2.0) mg/dL Ur Leukocyte Esterase (Negative) Salicylates 2.4 mg/dL Urine Opiates Screen (NotDetected) Ur Oxycodone Screen (NotDetected) Urine Methadone Screen (NotDetected) Ur Propoxyphene Screen (NotDetected) Acetaminophen <10.0 ug/mL Ur Barbiturates Screen (NotDetected) U Tricyclic Antidepress (NotDetected) Ur Phencyclidine Scrn (NotDetected) Ur Amphetamines Screen (NotDetected) U Methamphetamines Scrn (NotDetected) U Benzodiazepines Scrn (NotDetected) Urine Cocaine Screen (NotDetected) U Marijuana (THC) Screen (NotDetected) Serum Alcohol <10 mg/dL 01/19/20 01/19/20 Range/Units 22:35 22:43 WBC (3.8-10.6) k/uL RBC (3.80-5.40) m/uL Hgb (11.4-16.0) gm/dL Hct (34.0-46.0) % MCV (80.0-100.0) fL MCH (25.0-35.0) pg MCHC (31.0-37.0) g/dL RDW (11.5-15.5) % Plt Count (150-450) k/uL Neutrophils % % Lymphocytes % % Monocytes % % Eosinophils % % Basophils % % Neutrophils # (1.3-7.7) k/uL Lymphocytes # (1.0-4.8) k/uL Monocytes # (0-1.0) k/uL Eosinophils # (0-0.7) k/uL Basophils # (0-0.2) k/uL PT (9.0-12.0) sec INR (<1.2) APTT (22.0-30.0) sec VBG pH 7.30 L (7.31-7.41) VBG pCO2 47 (37-51) mmHg VBG HCO3 23 L (24-28) mmol/L Sodium (137-145) mmol/L Potassium (3.5-5.1) mmol/L Chloride (98-107) mmol/L Carbon Dioxide (22-30) mmol/L Anion Gap mmol/L BUN (7-17) mg/dL Creatinine (0.52-1.04) mg/dL Est GFR (CKD-EPI)AfAm (>60 ml/min/1.73 sqM) Est GFR (CKD-EPI)NonAf (>60 ml/min/1.73 sqM) Glucose (74-99) mg/dL POC Glucose (mg/dL) (75-99) mg/dL POC Glu Manufacturing Mechanic ID Plasma Lactic Acid Chris (0.7-2.0) mmol/L Calcium (8.4-10.2) mg/dL Magnesium (1.6-2.3) mg/dL Total Bilirubin (0.2-1.3) mg/dL AST (14-36) U/L ALT (4-34) U/L Alkaline Phosphatase (38-126) U/L Troponin I (0.000-0.034) ng/mL Total Protein (6.3-8.2) g/dL Albumin (3.5-5.0) g/dL Urine Color Light Yellow Urine Appearance Clear (Clear) Urine pH 6.0 (5.0-8.0) Ur Specific [place] 1.008 (1.001-1.035) Urine Protein Trace H (Negative) Urine Glucose (UA) Negative (Negative) Urine Ketones Negative (Negative) Urine Blood Negative (Negative) Urine Nitrite Negative (Negative) Urine Bilirubin Negative (Negative) Urine Urobilinogen <2.0 (<2.0) mg/dL Ur Leukocyte Esterase Negative (Negative) Salicylates mg/dL Urine Opiates Screen Not Detected (NotDetected) Ur Oxycodone Screen Not Detected (NotDetected) Urine Methadone Screen Not Detected (NotDetected) Ur Propoxyphene Screen Not Detected (NotDetected) Acetaminophen ug/mL Ur Barbiturates Screen Not Detected (NotDetected) U Tricyclic Antidepress Not Detected (NotDetected) Ur Phencyclidine Scrn Not Detected (NotDetected) Ur Amphetamines Screen Not Detected (NotDetected) U Methamphetamines Scrn Not Detected (NotDetected) U Benzodiazepines Scrn Not Detected (NotDetected) Urine Cocaine Screen Detected H (NotDetected) U Marijuana (THC) Screen Not Detected (NotDetected) Serum Alcohol mg/dL Critical Care Time Critical Care Time: Yes Total Critical Care Time: 45 Disposition Clinical Impression: Intracranial hemorrhage, Subarachnoid hemorrhage, Respiratory failure, Cocaine abuse Disposition: OTHER INSTITUTION NOT DEFINED Condition: Critical Is patient prescribed a controlled substance at d/c from ED?: No Referrals: None,Stated [Primary Care Provider] - 1-2 days Time of Disposition: 23:22 - Out of Hospital Transfer - Req. Specs Out of Hospital Transfer - Requested Specifics: Other Emergency Center (Transferred to [facility]
--- NOTE | 2020-01-19 22:50 | XR ---
EXAMINATION TYPE: XR chest 1V portable DATE OF EXAM: 01/19/2020 COMPARISON: 12/21/2019 HISTORY: Altered mental status. Intubation. TECHNIQUE: FINDINGS: Endotracheal tube is 1.4 cm from the erin. Lungs are clear. There is no heart failure. Th ere is nasogastric tube in the stomach. There are chest leads. Heart size is normal. Bony thorax is i ntact. IMPRESSION: Normal chest. Heart and lungs unchanged.
[2020-01-19] MEDS ORDERED: levETIRAcetam IV 1,500 MG in SALINE 1 100ML.BAG IVPB ONE (23:00)
[2020-01-19] MEDS ORDERED: MIDAZOLAM HCL 50 MG in SODIUM CHLORIDE 0.9% 40 ML IV SCH (23:00)
[2020-01-19] MEDS ORDERED: niCARdipine 20 MG in SODIUM CHLORIDE 0.9% 192 ML IV SCH (23:00)
[2020-01-19 23:04] LABS: Basophils # (A) 0.1 k/uL (0-0.2); Basophils % (A) 1 %; Eosinophils # (A) 0.1 k/uL (0-0.7); Eosinophils % (A) 1 %; HCT 44.4 % (34.0-46.0); HGB 14.1 gm/dL (11.4-16.0); Lymphocytes # (A) 0.8 k/uL (1.0-4.8); Lymphocytes % (A) 10 %; MCH 30.4 pg (25.0-35.0); MCHC 31.8 g/dL (31.0-37.0); MCV 95.5 fL (80.0-100.0); Mean Platelet Volume 7.5; Monocytes # (A) 0.3 k/uL (0-1.0); Monocytes % (A) 4 %; Neutrophils # (A) 6.5 k/uL (1.3-7.7); Neutrophils % (A) 83 %; Platelet Count 196 k/uL (150-450); RBC 4.64 m/uL (3.80-5.40); RDW 12.8 % (11.5-15.5); WBC 7.9 k/uL (3.8-10.6)
[2020-01-19 23:05] LABS: VBG PH 7.3 (7.31-7.41)
[2020-01-19 23:14] LABS: Prothrombin Time 10.4 sec (9.0-12.0)
[2020-01-19 23:21] LABS: ALT 15 U/L (4-34); AST 25 U/L (14-36); Acetaminophen <10.0 ug/mL; African American GFR (CKD) 71 (>60 ml/min/1.73 sqM); Albumin 4.5 g/dL (3.5-5.0); Alkaline Phosphatase 102 U/L (38-126); Anion Gap 10 mmol/L; Blood Urea Nitrogen 13 mg/dL (7-17); Calcium 8.8 mg/dL (8.4-10.2); Carbon Dioxide 23 mmol/L (22-30); Chloride 109 mmol/L (98-107); Glucose 152 mg/dL (74-99); Magnesium 1.7 mg/dL (1.6-2.3); Non-African American GFR(CKD) 62 (>60 ml/min/1.73 sqM); Salicylate 2.4 mg/dL; Sodium 142 mmol/L (137-145); Total Bilirubin 0.2 mg/dL (0.2-1.3); Total Protein 7.9 g/dL (6.3-8.2)
--- NOTE | 2020-01-19 23:21 | CT ---
EXAMINATION TYPE: CT brain wo con DATE OF EXAM: 01/19/2020 COMPARISON: 03/29/2016 HISTORY: Patient presents with AMS. CT DLP: 1109.4 mGycm Automated exposure control for dose reduction was used. Multiple axial sections were obtained of the brain without contrast. There is multiple areas of abnormal high attenuation in the third and fourth ventricle. There is sign ificant enlargement of the fourth ventricle. There is high attenuation in the posterior thalamus on t he right side. There is acute hemorrhage extending into the frontal horn right lateral ventricle. The re is acute hemorrhage in the occipital horns of both lateral ventricles. There is slight enlargement of the temporal horns of the lateral ventricles consistent with acute hydrocephalus. Calvarium is intact. IMPRESSION: Acute massive intraventricular subarachnoid hemorrhage with expansion of the fourth ventricle. There is also hemorrhage in the posterior right thalamus measuring 2 x 1.5 cm this probably origin of the h emorrhage. This is consistent with acute hypertensive hemorrhage. Exam was discussed with Dr. Ramin caldwell at 11:30 PM.
[2020-01-19 23:22] LABS: Alcohol <10 mg/dL
[2020-01-19 23:23] LABS: Appearance,Urine Clear (Clear); Bilirubin,Urine Negative (Negative); Blood,Urine Negative (Negative); Color,Urine Light Yellow; Glucose,Urine (UA) Negative (Negative); Ketones,Urine Negative (Negative); Leukocyte Esterase,Urine Negative (Negative); Nitrite,Urine Negative (Negative); Protein,Urine Trace (Negative); Specific Gravity,Urine 1.008 (1.001-1.035); Urobilinogen,Urine <2.0 mg/dL (<2.0)
[2020-01-19] MEDS ORDERED: methylPREDNISolone SOD SUCCI 125 MG/2 ML VIAL IV STA (23:29)
[2020-01-19] MEDS ORDERED: FAMOTIDINE 20 MG/2 ML VIAL IV STA (23:29)
[2020-01-19] MEDS ORDERED: diphenhydrAMINE 50 MG/ML 1 ML VIAL IVP STA (23:29)
[2020-01-19] MEDS ORDERED: SALINE 1 500ML.BAG with MANNITOL 20% PMX 350 ML IV ONE (23:30)
[2020-01-19 23:38] LABS: Amphetamine Screen,Urine Not Detected (NotDetected); Barbiturate Screen,Urine Not Detected (NotDetected); Benzodiazepines Screen,Urine Not Detected (NotDetected); Cocaine Screen,Urine Detected (NotDetected); Methadone Screen, Urine Not Detected (NotDetected); Opiate Screen,Urine Not Detected (NotDetected); Oxycodone Screen, Urine Not Detected (NotDetected); Phencyclidine Screen,Urine Not Detected (NotDetected); Tricyclic Antidepressant,Urine Not Detected (NotDetected); Urn Cannabinoid Scrn Not Detected (NotDetected)
[2020-01-19] MEDS ORDERED: ROCURONIUM BROMIDE 10 MG/ML 5 ML VIAL IV STA (23:43)
[2020-01-19] MEDS ORDERED: MIDAZOLAM 1 MG/ML 5 ML VIAL IV STA (23:45)
[2020-01-19 23:57] LABS: ABG Base Excess 0.1 mmol/L; ABG HCO3 28 mmol/L (21-25); ABG Oxygen Saturation 99.4 % (94-97); ABG PCO2 66 mmHg (35-45); ABG PH 7.23 (7.35-7.45); ABG PO2 360 mmHg (83-108); ABG TCO2 30 mmol/L (19-24); Allen Test Performed? Yes
--- NOTE | 2020-01-20 00:34 | CT ---
EXAMINATION TYPE: CT angio head neck DATE OF EXAM: 01/20/2020 COMPARISON: HISTORY: Patient presents with ams. CT DLP: 349.1 mGycm Automated exposure control for dose reduction was used. CONTRAST: Performed with IV Contrast, patient injected with 65mL mL of Isovue 370. Multiple axial sections were obtained from the vessels to the vertex of the brain with intravenous co ntrast. There are 3-D post processed images. There is bilateral arterial flow in the subclavian arter ies. There is arterial flow in both common internal and external carotid arteries. There is minimal p laque formation. There is no evidence of hemodynamic stenosis. Estimated narrowing is less than 25% i n both internal carotid arteries. There is bilateral arterial flow in the vertebral arteries. There i s no evidence of carotid or vertebral artery aneurysm or dissection. There is arterial flow in the vertebrobasilar artery system. There is arterial flow in the anterior middle and posterior cerebral arteries. There is extensive acu te hemorrhage within the ventricles. There is high attenuation in the right thalamus consistent with acute parenchymal hemorrhage. I see no filling defects in the venous sinuses. I see no evidence of intracranial aneurysm or neovascularity. There is no evidence of hemodynamic mauro nosis. I see no contrast extravasation. IMPRESSION: Minimal atheromatous change in the carotid arteries without evidence of hemodynamic stenosis. No aneu rysm or dissection. No evidence of intracranial aneurysm. No angiographic abnormality identified in the CT angiogram of the brain. Massive subarachnoid hemorrhage in the brain and right side thalamic hemorrhage.
[2020-01-20 00:38] VITALS: BP 153/90; PULSE 129; RESP 17
== END 2020-01-20 01:20 | disposition short-term general hospital (02) ==
LOC: EC 22:14
DX: I60.9 Nontraumatic subarachnoid hemorrhage, unspecified (principal); F14.10 Cocaine abuse, uncomplicated; J96.90 Respiratory failure, unspecified, unspecified whether with hypoxia or hypercapnia; R00.0 Tachycardia, unspecified; F17.200 Nicotine dependence, unspecified, uncomplicated; Z91.041 Radiographic dye allergy status; Z87.09 Personal history of other diseases of the respiratory system; Z85.43 Personal history of malignant neoplasm of ovary; Z85.41 Personal history of malignant neoplasm of cervix uteri; Z86.14 Personal history of Methicillin resistant Staphylococcus aureus infection; Z90.721 Acquired absence of ovaries, unilateral; Z98.890 Other specified postprocedural states; Z99.11 Dependence on respirator [ventilator] status; Z82.49 Family history of ischemic heart disease and other diseases of the circulatory system
CPT/HCPCS: 99291; 31500; 96365 ×2; 96368 ×2; 96375 ×3; 96366; 96376 ×2; 96361; 36415; 36600; 93005; 80053; 82805; 82803; 83605; 83735; 84484; 85025; 85610; 85730; 81003; 80306; 83520; 71045; 70496; 70450; 70498; G0480 ×2; J1200; J2930; J2250 ×2; J1953; Q9967; 80320; 80329; 94002